=== PATIENT | female | born 1955 | race Caucasian/White ===

== ENCOUNTER 2023-04-02 16:50 | Inpatient (IN) | payer MEDICARE, OTHER, MEDICAID ==
[~2023-04-02] VITALS: Ht 160 cm; Wt 62.2 kg
[2023-04-02 17:14] LABS: BASOPHILS 0.1 % (0-2); HEMATOCRIT 25.3 % (35.0-50.0); HEMOGLOBIN 7.9 g/dL (12.0-18.0); LYMPHOCYTES 7.9 % (24-44); MCH 30.4 (27-36); MCHC 31.3 g/dl (30-36); MCV 97.3 fl (81-99); MONOCYTES 6.6 % (0-12); NEUTROPHILS 85.4 % (39-80); PLATELET COUNT 284 K/uL (140-440); RDW 18.1 (10.5-15.0)
[2023-04-02 17:24] LABS: ALBUMIN 2.2 g/dL (3.4-5.0); ALBUMIN/GLOBULIN RATIO 0.73 (1.1-2.4); ALCOHOL, MEDICAL <3 ng/dL (<3); ALKALINE PHOSPHATASE 418 U/L (46-116); ALT (SGPT) 22 U/L (14-59); ANION GAP 19.7 (7-21); AST (SGOT) 67 U/L (15-37); BILIRUBIN, TOTAL 0.5 ng/dL (0.2-1.0); BUN/CREATININE RATIO 22.93 (6.0-28.6); CALCIUM 7.7 mg/dL (8.5-10.1); CARBON DIOXIDE 19 mmol/L (21-32); CHLORIDE 105 mmol/L (98-107); CREATINE KINASE 27 U/L (26-192); CREATININE, SERUM 1.09 mg/dL (0.55-1.02); GLOMERULAR FILTRATION RATE,EST 49 mL/min (>60); POTASSIUM 4.7 mmol/L (3.5-5.1); PROTEIN, TOTAL 5.2 g/dL (6.4-8.2); UREA NITROGEN 25 mg/dL (7-18)
[2023-04-02 17:44] LABS: ABO O; ANTIBODY SCREEN NEGATIVE; IS CROSSMATCH COMPATIBLE; RH POSITIVE
[2023-04-02 18:03] LABS: ABO O; RH POSITIVE
[2023-04-02 19:21] LABS: INFLUENZA B NAA NEGATIVE (NEGATIVE); RESPIRATORY SYNCYTIAL VIR NAA NEGATIVE (NEGATIVE)
--- NOTE | 2023-04-02 19:50 | NUR ---
REPORT RECEIVED FROM JORGE TRIPATHI IN ED TRAUMA ROOM 1. PT TRANSPORTED TO CCU ROOM 128 VIA STRETCHED WITHOUT INCIDENT WITH THIS HEAD COUNSELOR. 1 UNIT PRBC INFUSING PER ORDER. PT VSS AND NAD NOTED VIA DIRECT OBSERVATION, CONTINUOUS MONITOR AND PT VERBALIZATION.
[2023-04-02] MEDS ORDERED: ELIQUIS5 MG PO (20:15)
[2023-04-02 20:30] VITALS: BP 90/52
[2023-04-02 20:42] LABS: BASOPHILS 0.1 % (0-2); HEMATOCRIT 28.6 % (35.0-50.0); HEMOGLOBIN 9.3 g/dL (12.0-18.0); LYMPHOCYTES 5.6 % (24-44); MCH 29.9 (27-36); MCHC 32.4 g/dl (30-36); MCV 92.3 fl (81-99); MONOCYTES 6.9 % (0-12); NEUTROPHILS 87.4 % (39-80); PLATELET COUNT 172 K/uL (140-440); RDW 17.5 (10.5-15.0)
[2023-04-02 20:46] VITALS: BP 96/51
[2023-04-02 20:52] LABS: PARTIAL THROMBOPLASTIN TIME 31.5 Sec (22.9-41.3)
[2023-04-02 20:53] LABS: INR 1.38 (0.80-1.30); PROTIME 16.4 Sec (11.2-14.2)
[2023-04-02 21:00] VITALS: BP 93/52
[2023-04-02 21:30] VITALS: BP 93/65
--- NOTE | 2023-04-02 21:47 | NUR ---
CALLED AT THIS TIME, TO VERIFY [facility] ORDER, SAID "SINCE SHE IS NOT HAVING ANY FURTHER EMESIS, OK TO HOLD THIS DOSE FOR NOW. VIJAYA JENKINS COMPUTER GAME TESTER [facility] FOR CALL ON SPEAKER.
--- NOTE | 2023-04-02 21:51 | NUR ---
PT ADMISSION ASSESSMENT COMPLETE. SEE [facility] FOR DETAILS. PT REQUESTED AND USED BEDPAN, PT UNABLE TO USE PUREWICK AFTER PLACEMENT. PT DENIES PAIN, DENIES ADDITIONAL NEEDS AT THIS TIME. PT VERBALIZES UNDERSTANDING TO USE CALL LIGHT WITH NEEDS. BED IN LOW, LOCKED POSITION. VSS AND NAD NOTED VIA DIRECT OBSERVATION, PT VERBALIZATION AND CONTINUOUS MONITOR.
[2023-04-02 22:00] VITALS: BP 91/52
[2023-04-02 22:25] LABS: HEMOGLOBIN 8.5 g/dL (12.0-18.0); LYMPHOCYTES 5.9 % (24-44); MCH 29.8 (27-36); MCHC 32.7 g/dl (30-36); MCV 91.2 fl (81-99); MONOCYTES 5.6 % (0-12); NEUTROPHILS 88.5 % (39-80); PLATELET COUNT 148 K/uL (140-440); RBC 2.85 M/ul (4.3-5.7); RDW 17.1 (10.5-15.0)
--- NOTE | 2023-04-02 23:00 | NUR ---
PT INFORMATION INCORRECT ON DOCUMENTATION, WRISTBAND AND MEDITCH. PT CORRECT NAME SPELLING: PANCHITO TYLER. CORRECT : 51 CORRECT AGE: 68 REGISTRATION STATES CORRECTIONS CANNOT BE COMPLETED UNTIL PATIENT DISCHARGE.
[2023-04-02 23:21] VITALS: BP 105/58
[2023-04-03] VITALS (14 sets, daily range): BP systolic 89–109; BP diastolic 44–63
--- NOTE | 2023-04-03 00:32 | NUR ---
SHIFT ASSESSMENT COMPLETE. SEE [facility] FOR DETAILS. PT INTERMITTENTLY CONFUSED, EASILY REORIENTED UPON AWAKENING. PT REMOVED GOWN AND WAS CONFUSED INITIALLY. PT REORIENTED, GOWN REPLACED. PT DENIES ADDITIONAL NEEDS. PT VERBALIZES UNDERSTANDING TO USE CALL LIGHT WITH NEEDS. BED IN LOW, LOCKED POSITION WITH BED ALARM ON FOR PT SAFETY. NAD NOTED AND VSS PER DIRECT OBSERVATION AND CONTINUOUS MONITOR.
--- NOTE | 2023-04-03 01:19 | NUR ---
PT REQUESTED ASSIST WITH BEDPAN. PT ABLE TO URINATE USING BEDPAN NOT PUREWICK AFTER SEVERAL ATTEMPTS WITH PUREWICK. PT REPOSITIONED, DAPHNE CARE COMPLETED. PT DENIES ADDITIONAL NEEDS AT THIS TIME. VSS AND NAD NOTED VIA DIRECT OBSERVATION AND CONTINUOUS MONITOR.
--- NOTE | 2023-04-03 02:00 | NUR ---
LAB IN ROOM. PT REQUESTED AND PROVIDED WARM BLANKET. PT DENIES ADDITIONAL NEEDS. NAD NOTED AND VSS PER CONTINUOUS MONITOR AND DIRECT OBSERVATION.
[2023-04-03 02:19] LABS: HEMOGLOBIN 8.5 g/dL (12.0-18.0); LYMPHOCYTES 6.4 % (24-44); MCH 29.9 (27-36); MCHC 32.8 g/dl (30-36); MCV 91.3 fl (81-99); NEUTROPHILS 86.6 % (39-80); PLATELET COUNT 141 K/uL (140-440); RBC 2.85 M/ul (4.3-5.7); RDW 17.9 (10.5-15.0)
--- NOTE | 2023-04-03 04:24 | NUR ---
PT RESTING IN BED, EASILY AWAKENED. PT DENIES PAIN AND DENIES NEEDS AT THIS TIME. SHIFT ASSESSMENT COMPLETE. [facility]. BED IN LOW, LOCKED POSITION WITH BED ALARM ON FOR PT SAFETY. VSS AND NAD NOTED VIA DIRECT OBSERVATION AND CONTINUOUS MONITOR.
[2023-04-03 05:57] LABS: ALBUMIN 2.3 g/dL (3.4-5.0); ALBUMIN/GLOBULIN RATIO 0.79 (1.1-2.4); ANION GAP 14.5 (7-21); BILIRUBIN, TOTAL 0.5 ng/dL (0.2-1.0); BUN/CREATININE RATIO 40.5 (6.0-28.6); CALCIUM 7.4 mg/dL (8.5-10.1); CREATININE, SERUM 0.79 mg/dL (0.55-1.02); POTASSIUM 4.5 mmol/L (3.5-5.1); PROTEIN, TOTAL 5.2 g/dL (6.4-8.2)
[2023-04-03 05:59] LABS: HEMATOCRIT 26.4 % (35.0-50.0); HEMOGLOBIN 8.5 g/dL (12.0-18.0); LYMPHOCYTES 8.5 % (24-44); MCH 29.4 (27-36); MCHC 32.1 g/dl (30-36); MCV 91.5 fl (81-99); MONOCYTES 7.4 % (0-12); NEUTROPHILS 84.1 % (39-80); PLATELET COUNT 135 K/uL (140-440); RBC 2.89 M/ul (4.3-5.7); RDW 18.1 (10.5-15.0)
--- NOTE | 2023-04-03 06:05 | NUR ---
PT ACCIDENTALLY PULLED OUT RIGHT ARM IV. CATHETER WAS INTACT. PT REQUESTED ADDITIONAL WARM BLANKET. rEQUEST PROVIDED. PT DENIES ADDITIONAL NEEDS. CALL LIGHT IN REACH. BED IN LOW, LOCKED POSITION WITH BED ALARM ON FOR PT SAFETY. VSS AND NAD NOTED VIA CONTINUOUS MONITOR ANDDIRECT OBSERVATION.
[2023-04-03 06:14] LABS: PARTIAL THROMBOPLASTIN TIME 28.2 Sec (22.9-41.3)
[2023-04-03 06:15] LABS: INR 1.27 (0.80-1.30); PROTIME 15.3 Sec (11.2-14.2)
--- NOTE | 2023-04-03 06:48 | NUR ---
PT CONFUSED, ATTEMPTING TO GET OUT OF BED. PT ASKING WHEN SHE IS GOING TO HAVE SURGERY. PT REORIENTED. PT CONTINUED TO TRY TO GET OUT OF BED. PT STATED SHE NEEDED TO GET IN HER OWN BED. PT REORIENTED. PT VERBALIZES UNDERSTANDING TO USE CALL LIGHT WITH NEEDS. REINFORCEMENT NEEDED. PT BED ALARM ON AND BED IN LOW, LOCKED POSITION FOR PT SAFETY. VSS AND NAD NOTED VIA DIRECT OBSERVATION AND CONTINUOUS MONTITOR.
--- NOTE | 2023-04-03 07:30 | NUR ---
REPORT RECEIVED FROM NIGHT RN - PT RESTING IN BED WITH EYES CLOSED, RR EVEN AND UNLABORED. BED ALARM ON, SIDE RAILS UP X 3. DOOR AND CURTAIN OPEN TO RN STATION.
--- NOTE | 2023-04-03 08:30 | NUR ---
PT REMAINS RESTING IN BED WITH EYES CLOSED, NO DISTRESS NOTED. BED ALARM ON.
--- NOTE | 2023-04-03 09:07 | NUR ---
RN IN ROOM TO ADDRESS ALARMING IV. PT WAKES EASILY TO TOUCH AND VOICE. ORIENTED TO SELF AND PLACE BUT AFTER ANSWERING "TACHO" PT IS UNABLE TO PROVIDE ANY ANSWER OTHER THAN "TACHO" TO ALL QUESTIONS ANSWERED. NO DISTRESS NOTED OR OTHER PAIN INDICATIONS. BOWEL TONES ACTIVE, DENIES NAUSEA. PT DROWSY AND RETURNS TO SLEEP WITH WARM BLANKET PLACED OVER ARM TO AVOID DISTAL OCCLUSION. BED ALARM ON WITH CURTAIN AND DOOR OPEN TO RN STATION.
--- NOTE | 2023-04-03 11:00 | NUR ---
RN IN ROOM TO ROUND ON PT - FAMILY AT BEDSIDE. PT RESTING IN BED WITH EYES CLOSED BUT ANSWERS QUESTIONS WHEN ASKED. PT REPORTS 10/10 PAIN IN LOWER ABD. DAUGHTER AT BEDSIDE STATES SHE REQUIRES PREMEDICATION WITH BENEDRYL PRIOR TO NARCOTIC ADMINISTRATION. MINIMAL DOSES OF BOTH BENEDRYL AND FENTANYL ADMINISTERED TO TITRATE TO EFFECTIVE DOSES MONITORING SOFT BP'S.
--- NOTE | 2023-04-03 12:11 | NUR ---
PT ASSISTED UP TO BSC USING 2 PERSON ASSIST. PT UNABLE TO FOLLOW DIRECTIONS WELL DURING TRANSFER. VOIDED 175 OF CONCENTRATED URINE. PT BACK TO BED AND RESTING WITH EYES CLOSED, FAMILY NO LONGER IN ROOM. MAP 59 AT THIS TIME AFTER MEDICAITON ADMINISTRATION WILL CONTINUE TO MONITOR.
--- NOTE | 2023-04-03 13:30 | NUR ---
PT RESTING IN BED WITH EYES CLOSED, RR EVEN AND UNLABORED. BED ALARM ON.
--- NOTE | 2023-04-03 14:00 | NUR ---
PHYSICAL THERAPY IN ROOM WORKING WITH PT. PT ABLE TO FOLLOW DIRECTIONS TRANSIENTLY, UNABLE TO STAND WTIH WALKER BUT ABLE TO BEAR WEIGHT ON BOTH LEGS EQUALLY. BACK TO BED AND QUICKLY FALLS BACK ASLEEP. CALL LIGHT IN REACH, BED ALARM ON.
--- NOTE | 2023-04-03 14:30 | NUR ---
RN ROUNDING ON PT. ASSESSMENT COMPLETE. PT STATES PAIN IS 0/10, ALLOWS PALPATION OF HER ABD WITHOUT GRIMACE OR DISCOMFORT. PT UNABLE TO ANSWER ANY ORIENTATION QUESTIONS, EXPRESSIVE APHASIA TRANSIENT. PT REMIANS DROWSY AND RESTING MOST OF DAY.
--- NOTE | 2023-04-03 15:55 | NUR ---
RN IN ROOM TO RESPOND TO BED ALARM - PT ASSISTED UP TO BSC TO VOID - 100ML URINE VOIDED. BACK TO BED LAYING FLAT ON BACK PER PT REQUEST. BED ALARM ON.
--- NOTE | 2023-04-03 17:07 | NUR ---
RN IN ROOM ROUNDING ON PT - PT AWAKES WITH TOUCH AND VOICE, UNABLE TO OPEN EYES FOR A SUSTAINED AMOUNT OF TIME. PT ANSWERING ORIENTATION QUESTIONS WITH INAPPROPRIATE ANSWERS, SUCH COUNTING TO 10 WHEN ASKED WHAT MONTH IT WAS. PT DOES HOLD ABD AND GRIMACE, LOWER ABD TENDER ON PALPATION, UNCHANGED IN DISTENTION FROM PRIOR ASSESSMENT. PRN FENTANYL ADMINISTERED. FAMILY IN ROOM, PT ABLE TO IDENTIFY DAUGHTER BY NAME. ALL QUESTIONS ANSWERED.
--- NOTE | 2023-04-03 17:33 | NUR ---
RN IN ROOM PER FAMILYS REQUEST PT REMAINS IN PAIN. PT GRIMACING AND MOANING HOLDING ABD. ADDITIONAL 12.5MCG FENTANYL PUSHED IV. FAMILY REMAIN AT BEDSIDE, EMOTIONAL REGARDING PT CONDITION.
--- NOTE | 2023-04-03 17:54 | NUR ---
LAB IN ROOM TO DRAW STAT CBC - MD UPDATED ON PT STATUS: WORSENING ABD PAIN WITH CONSISTANTLY ELEVATED HR TRENDING UPWARD THROUGHOUT SHIFT.
[2023-04-03 17:57] LABS: BASOPHILS 0.1 % (0-2); HEMATOCRIT 24.5 % (35.0-50.0); LYMPHOCYTES 7.1 % (24-44); MCH 30.1 (27-36); MCHC 32.8 g/dl (30-36); MCV 91.8 fl (81-99); MONOCYTES 11.3 % (0-12); NEUTROPHILS 81.5 % (39-80); PLATELET COUNT 122 K/uL (140-440); RBC 2.67 M/ul (4.3-5.7); RDW 17.8 (10.5-15.0)
--- NOTE | 2023-04-03 18:00 | NUR ---
PT RESTING IN BED WITH EYES CLOSED, HAS NOT VOIDED IN SEVERAL HOURS AND DOES NOT APPEAR ABLE TO TRANSFER TO BS AT THIS TIME. BLADDER SCAN SHOWS >400ML IN BLADDER. FAMILY ASKS TO SPEAK WITH MD REGARDING CARE DECISIONS. RN IN ROOM WITH MD WHILE COMFORT CARE VS TREATMENT OPTIONS ARE DISCUSSED. ALL QUESTIONS ANSWERED. PT RESTS IN BED DURING DURATION OF CONVERSATION WITH EYES CLOSED AND ASLEEP.
--- NOTE | 2023-04-03 18:10 | NUR ---
RN IN ROOM ROUNDING ON PT - REMAINS IN TENSE POSISTION RUBBING LEFT HIP, UNABLE TO VERBALIZE PAIN RATING. TITRATING PRN FENTANYL IV PUSH TO 50MCG DOSE. FAMILY REMAINS AT SIDE.
--- NOTE | 2023-04-03 19:21 | NUR ---
RN IN ROOM TO ROUND ON PT AND FAMILY. FAMILY COLLECTIVLY COMMUNICATES THAT THEY WISH TO PLACE PT ON COMFORT CARE MEASURES. MD NOTIFIED.
--- NOTE | 2023-04-03 20:38 | NUR ---
CARE OF PT ASSUMED, REPORT RECEIVED FROM VY PATEL. PT IS RESTING IN BED, RESP EVEN AND UNLABORED, EYES CLOSED, PT APPEARS COMFORTABLE. BED ALARM ON.
--- NOTE | 2023-04-03 22:04 | NUR ---
PT HAS BECOME RESTLESS AND IS PULLING AT CATHETER AND TOSSING AND TURNING IN THE BED, WHEN ASKED IF SHE IS IN PAIN SHE STATES "YES" BUT ANSWERS NO FURTHER QUESTIONS. PT GRIMACING AND MOANING. 25MCG IV FENTANYL GIVEN.
--- NOTE | 2023-04-03 23:03 | NUR ---
FENTANYL PATCH APPLIED TO LEFT SHOULDER. PT HAS BEGUN TOSSING AND TURNING AND MOANING AGAIN, WHEN ASKED IF SHE IS IN PAIN SHE STATES "NO" AT THIS TIME, WILL CONT TO MONITOR. BED ALARM ON.
--- NOTE | 2023-04-03 23:17 | NUR ---
PT CONT TO MOAN AND ROLL AROUND IN THE BED, THIS TIME WHEN ASKED RE PAIN SHE STATES "YES" AND THAT IT IS HER BACK THAT IS HURTING. 25MCG IV FENTANYL GIVEN.
--- NOTE | 2023-04-04 02:07 | NUR ---
PT RESTING, APPEARS COMFORTABLE, RESP EVEN AND UNLABORED.
--- NOTE | 2023-04-04 04:00 | NUR ---
PT REMAINS RESTFUL AND NO LONGER PAINFUL/RESTLESS. OCCASIONALLY IS TURNING HERSELF IN BED. RESP EVEN AND UNLABORED, DOES RESPOND TO STIMULI-TOUCH AND SOUND.
--- NOTE | 2023-04-04 05:10 | NUR ---
BEDSIDE REPORT RECEIVED FROM SKY RN, PT RESTING QUIETLY IN BED, RESP EVEN AND REGULAR, COLOR PALE, PT TRANSPORTED VIA BED TO ROOM 116, PT COMFORT CARE, BED ALARM ON, SIDE RAILS UP X 4, WARM BLANKET GIVEN. PT NPO AT THIS TIME.
--- NOTE | 2023-04-04 05:23 | NUR ---
REPORT GIVEN TO OFELIA PATEL. PT TRANSFERRED TO MED SURG WITH LIFE SKILLS CONSULTANT.
--- NOTE | 2023-04-04 06:40 | NUR ---
PT RESTING WITH EYES CLOSED, RESP EVEN AND REG, SULLIVAN DRAINING SMALL AMOUNT YELLOW URINE.
--- NOTE | 2023-04-04 07:44 | NUR ---
PT SLEEPING SOUNDLY AT TIME OF SHIFT REPORT. QUIET ALERT AT THIS TIME ANSWERS YES/NO QUESTIONS. AGREES SHE IS COMFORTABLE. ORAL CARE PROVIDED, FACE WASHED. DENIES OTHER NEEDS OF. BED ALARM IS SET SULLIVAN DRAINING YELLOW URINE.
--- NOTE | 2023-04-04 09:01 | NUR ---
ORDERS FROM DR. ROBERTSON TO DC IV FLUIDS AND TELEMETRY MONITORING PT IS COMFORT MEASURES ONLY. ORDERS ENTERED, REPEAT BACK PERFORMED.
--- NOTE | 2023-04-04 09:12 | NUR ---
PT CONTINUES RESTING QUIETLY. ROLLS AND REPOSITIONS SELF IN BED DESIRED, RESTING ON RIGHT SIDE AT THIS TIME, ROLLS TO LEFT SIDE WHEN REQUESTED. FENT PATCH IS SECURELY IN PLACE BACK OF LEFT SHOULDER. IV FLUIDS DC'D PER ORDERS.
--- NOTE | 2023-04-04 10:46 | NUR ---
FAMILY PRESENT X4. PT RESTING SOUNDLY. UPDATE R/T PLAN OF CARE PROVIDED, UNDERSTANDING VERBALIZED FURTHER QUESTIONS DENIED.
[2023-04-04] MEDS ORDERED: DEXAMETHASONE4 MG PO (11:44)
[2023-04-04] MEDS ORDERED: POTASSIUM CHLO10 ME2 PO (11:44)
[2023-04-04] MEDS ORDERED: ITRACONAZOLE100 MG PO (11:45)
[2023-04-04] MEDS ORDERED: MELOXICAM7.5 MG PO (11:45)
[2023-04-04] MEDS ORDERED: TRIAMCINOLONE A15 G1 TOP (11:46)
[2023-04-04] MEDS ORDERED: NITROFURANTOIN100 MG PO (11:47)
[2023-04-04] MEDS ORDERED: DULOXETINE HCL40 MG PO (11:47)
--- NOTE | 2023-04-04 14:12 | NUR ---
PT RESTING EYES CLOSED, SEVERAL FAMILY MEMBERS PRESENT. THEY AGREE THE DOCTOR ANSWERED ALL QUESTIONS EARLIER, DENY NEEDS OF. PT APPEARS RESTFUL AND COMFORTABLE
--- NOTE | 2023-04-04 15:09 | NUR ---
PT CONTINUES TO RESTING IN BED DOZING AND THEN AWAKE FOR SHORT PERIODS OF TIME. FAMILY REPORT RECOGNITION OF THIER PRESENCE. PT CONTINUES TO ANSWER YES/NO DENIES PAIN OR DISCOMFORTS. FAMILY REMAIN AT BEDSIDE
[2023-04-04] MEDS ORDERED: DIPHENOXYLATE-1 EACH PO (17:00)
[2023-04-04] MEDS ORDERED: VITAMIN D325 MCG PO (17:01)
[2023-04-04] MEDS ORDERED: ALPHA LIPOIC A600 M1 PO (17:01)
[2023-04-04] MEDS ORDERED: FISH OIL 1,001000 MG PO (17:02)
--- NOTE | 2023-04-04 17:03 | NUR ---
medications reconciled using pharmacy records, PCP notes and patient family interview
--- NOTE | 2023-04-04 17:36 | NUR ---
PT FAMILY REMAIN AT BEDSIDE DENY ANY S/S OF PAIN OR AGITATION DISPLAYED BY PT. PT REFUSES ORAL CARE AND REPOSITIONS SELF IN BED. CONTINUES TO DOZE AND THEN WAKE FOR SHORT TIMES. FAMILY DENY NEEDS
--- NOTE | 2023-04-04 19:00 | NUR ---
REPORT RECIEVED FROM DAQUAN PATEL. BOARD UPDATED. PATIENT RESTING CONFORTABLY. CALL LIGHT WITH IN REACH. NO FURTHER NEEDS AT THIS TIME.
--- NOTE | 2023-04-04 20:28 | NUR ---
PATIENT APEARS COMFORTABLE, NO S/SX OF PAIN NOTED. FACE WASHED. DAPHNE CARE AND CATHETER CARE DONE. LINENS CHANGED. WARM BLANKET GIVEN.
--- NOTE | 2023-04-04 22:34 | NUR ---
PATIENT RESTING IN THE BED. PATIENT DENIES ANY PAIN AT THIS TIME. CALL LIGHT WITH IN REACH.
--- NOTE | 2023-04-05 00:15 | NUR ---
PATIENT LAYING IN BED WITH KNEES BENT AND BLANKETS OFF. THIS RN ASKED THE PATIENT IF SHE WAS HAVING ANY PAIN, PATIENT NODDED YES. WARM BLANKET GIVEN. PRN PAIN MEDICATION GIVEN PER ORDER SEE AUG. O2 SATURATION AND HR SPOT CHECKED. O2 AT 91%, HR AT 105. PATIENT IS RESTING NOW WITH EYES CLOSED. LEGS ARE RELAXED.
--- NOTE | 2023-04-05 01:31 | NUR ---
PATIENT RESTING IN THE BED WITH EYES CLOSED. RESP AT 14. CALL LIGHT WITH IN REACH. NO NEEDS AT THIS TIME.
--- NOTE | 2023-04-05 04:01 | NUR ---
PATIENT RESTING IN BED WITH EYES CLOSED. RESPIRATIONS OBSERVED. CALL LIGHT IN REACH.
--- NOTE | 2023-04-05 06:25 | NUR ---
PATIENT RESTING IN THE BED. PATIENT MORE ALERT THIS MORNING. PATIENT DENIES ANY PAIN. OXYGEN AND HR SPOT CHECKED. CALL LIGHT WITH IN REACH. NO FURTHER NEEDS AT THIS TIME.
--- NOTE | 2023-04-05 07:30 | NUR ---
PT RESTING SOUNDLY AT TIME OF SHIFT REPORT. SHE APPEARS RELAXED BREATHING EVEN AND UNLABORED. BED ALARM IS SET, SULLIVAN DRAINING YELLOW URINE. PT LEFT UNDISTURBED
--- NOTE | 2023-04-05 08:04 | NUR ---
PT CONTINUES RESTING EYES CLOSED. OPENS EYES AND SMILES WHEN TOUCHED AND SPOKEN TO. DOES NOT ANSWER YES/NO QUESTIONS AT THIS TIME. REMAINS IN A RELAXED POSITION AND HAS TURNED TO THE OTHER SIDE SINCE LAST CHECK.
--- NOTE | 2023-04-05 09:40 | NUR ---
Spoke with pt and family. Pt able to respond with 1 word to question. Falls asleep. Pt currently lives with daughter. Pts sister and mother in the room. Son will arrive from [place] later today. Pt was made comfort care yesterday. Discussed options of placement or home with hospice. Family are agreeable to Hospice. I called Dede at hospice and they could deliver a bed tomorrow and admit on Wed. She will let me know when the bed can be delivered.
--- NOTE | 2023-04-05 09:49 | NUR ---
CONNECTED WITH SISTER AND ONE OTHER FAMILY MEMBER IN [facility]. THEY EXPRESSED COMFORT IN DIANNA. GAVE PASTORAL CARE.
--- NOTE | 2023-04-05 10:00 | NUR ---
FENT PATCH NOT PRESENT ON THIS PT. LAST NOTED BY THIS PROJECT MANAGER RETAIL YESTERDAY START OF SHIFT. PHARMACY NOTIFIED. PT GIVEN BED BATH AND LINENS CHANGED PATCH NOT FOUND. NEW PATCH APPLIED. CATH CARE PROVIDED FULL BED BATH AND LINEN CHANGE COMPLETE. FAMILY PRESENT IN ROOM. PT APPEARS PAINFUL DURING PROCESS STATES YES WHEN ASKED IF SHE WANTS PAIN MEDICATIONS MEDICATED WITH IV FENT. NEW PATCH APPLIED WITH OPSITE OVER IT, DAUGHTER STATES PT IS A "ASSESSOR" PATCH PLACED IN AN EFFORT TO MAKE IT HARD TO REACH. PT GIVEN WARM BLANKET, AGREES SHE FEELS BETTER, APPEARS RELAXED AFTER ALL THE ACTIVITY. SEVERAL FAMILY MEMBERS PRESENT IN THE ROOM HOSPICE CART WAS FRESHENED BEFORE THEY ARRIVED.
--- NOTE | 2023-04-05 10:46 | NUR ---
I ASKED FAMILY IS THERE ANYTHING THEY NEED AND THEY SAID NO.
--- NOTE | 2023-04-05 11:27 | NUR ---
FAMILY IN ROOM. DAUGHTER EXPRESSED CONCERN ABOUT NEXT STEPS, STATING THAT THEY DID NOT EXPECT TO LEAVE HOSPITAL. I VERIFIED THAT CASE MANAGEMENT HAD NOT YET BEEN IN, THEN ASSURED DAUGHTER I WOULD LET CASE MANAGEMENT KNOW THEY NEEDED THEIR SERVICES. FOLLOWED UP WITH PARTY HOST/HOSTESS LLOYD WHO INDICATED SHE WOULD VISIT SOON POSSIBLE BUT IT MIGHT BE A BIT.
--- NOTE | 2023-04-05 11:47 | NUR ---
PT AGREES SHE IS PAINFUL AND WANTS PAIN MED ADMINISTERED. FENT GIVEN. FAMILY PRESENT IN THE ROOM SPEAKING WITH DC WAXER OPERATOR
--- NOTE | 2023-04-05 12:42 | NUR ---
PT AWAKE, AGREES SHE IS COMFORTABLE. ACCEPTS ORAL CARE THEN TURNS TO HER SIDE AND RETURNS TO RESTING EYES CLOSED. FAMILY REMAIN AT BEDSIDE
--- NOTE | 2023-04-05 13:47 | NUR ---
PT CONTINUES TO REPOSITION HERSELF SIDE TO SIDE AT WILL. ANSWERS YES/NO WHEN AWAKE, AGREES SHE IS PAINFUL BUT UNABLE TO DESCRIBE FURTHER. MEDICATED PER MAR. FAMILY REMAIN AT BEDSIDE
--- NOTE | 2023-04-05 14:00 | NUR ---
Son, Salas arrived. UPdated to all. They will clean furniture out of living area. Let them know I will return when Iknow when the bed can be delivered.
--- NOTE | 2023-04-05 15:19 | NUR ---
UR NOTE: MEETS GASTROINTESTINAL BLEEDING, UPPER INPATIENT FOR ADMIT
--- NOTE | 2023-04-05 15:23 | NUR ---
FAMILY CONTINUE AT BEDSIDE. DC COLOR FINISHER IN TO UPDATE THEM AND DISCUSS PLANS FOR DC. PT RESTING QUIETLY FAMILY AGREE SHE APPEARS COMFORTABLE
--- NOTE | 2023-04-05 16:22 | NUR ---
PT DTR CALLED TO SAY MOTHER WAS MOANING AND REPORTING INCREASING PAIN. ADMINISTERED IV FENTYL. ADVISED IF THAT DOES NOT HELP SHORTLY TO CALL AGAIN. TURNED UP HEAT IN ROOM PER FAMILY REQUEST.
--- NOTE | 2023-04-05 16:35 | NUR ---
PT RESTING COMFORTABLY. PT FAMILY ANTICIPATE HER TRANSFERRING HOME TOMORROW. DENY CONCERNS OR QUESTIONS
--- NOTE | 2023-04-05 16:51 | NUR ---
Spoke with Estela. She does not have a time for the bed delivery. She will call in the AM. She does think they will have a nurse available tomorrow afternoon to admit to hospice. She will update me in the am. Family notified.
--- NOTE | 2023-04-05 16:53 | NUR ---
Hospice brochure and booklet given.
--- NOTE | 2023-04-05 17:54 | NUR ---
PT RESTING EYES CLOSED FAMILY AT BEDSIDE. HOSPICE CART FRESHENED DRINKS PROVIDED
--- NOTE | 2023-04-05 19:02 | NUR ---
BEDSIDE REPORT RECEIVED FROM DAQUAN PATEL, PT RESTING QUIETLY, OPENS EYES, PT APPEARS RELAXED AT THIS TIME, SIDE RAILS UP X 4, BED LOW POSITION, NO FAMILY AT BEDSIDE AT THIS TIME.
--- NOTE | 2023-04-05 20:40 | NUR ---
PT RESTING QUIETLY, APPEARS CALM, ASSESSMENT AND VS COMPLETED, PT TO RIGHT SIDE, BLANKETS REPLACED ON PT, DURAGESIC PATCH IS IN PLACED TO MID BACK AND COVERED WITH OPSITE, SIDE RAILS UP X 4, BED IN LOW POSITION. PT OPENS EYES AT TIMES, NONVERBAL AT THIS TIME.
--- NOTE | 2023-04-05 21:50 | NUR ---
PT APPEARS TO SLEEP, RESP EVEN AND REG AT 16/MIN, PT COVERED WITH BLANKETS.
--- NOTE | 2023-04-05 22:55 | NUR ---
PT OPENS EYES, APPEARS RELAXED, REMAINS NONVERBAL, SL IN LEFT AC AND LEFT FOREARM BOTH FLUSH WELL. SULLIVAN OUT 175CC MIGEL URINE.
--- NOTE | 2023-04-06 00:40 | NUR ---
PT APPEARS TO SLEEP, RESP EVEN AND REG, RESP RATE 16/MIN. PT HAS REPOSITIONED HERSELF.
--- NOTE | 2023-04-06 02:20 | NUR ---
PT RESTING QUIETLY WITH EYES CLOSED, RESP EVEN AND REG.
--- NOTE | 2023-04-06 03:30 | NUR ---
PT CONTINUES TO SLEEP, RESP EVEN AND REG, PT REPOSITIONING SELF AT TIMES.
--- NOTE | 2023-04-06 05:30 | NUR ---
PT CONTINES TO REST QUIETLY, APPEARS COMFORTABLE, OPENS EYES BUT NONVERBAL, CATH CARE GIVEN, SULLIVAN EMPTIED FOR 150ML MIGEL URINE.
--- NOTE | 2023-04-06 07:37 | NUR ---
Received report from Katarina PATEL. Patient resting in bed with eyes closed, even and unlabored respirations noted, covered with blankets for patient comfort. Will continue plan of care.
--- NOTE | 2023-04-06 09:00 | NUR ---
Spoke with Sadie and family. I spoke with Estela from Hospice. The bed will be delivered this morning. Pt may dc to home at any time. She will let me know if a spot opens up for a nurse to admit this pt this afternoon or if it will be tomorrow. Family updated.
--- NOTE | 2023-04-06 09:04 | NUR ---
Rounded on patient and family. Patient resting in bed, family inquires about pain medication, IV fentanyl provided. Comfort care assessment complete. RR 16 on room air. No resp distress or secretions noted. HRR. Osuna draining WNL. SHUTTLELESS LOOM WEAVER in room assisting with oral care and hygiene. Patient positioned with pillows for comfort. Family denies further needs, call light in reach.
--- NOTE | 2023-04-06 10:01 | NUR ---
FAMILY IN ROOM. PROVIDED HOSPITALITY IN FORM OF REQUESTED PILLOW AND CUP OF COFFEE. PRAYED FOR ABIDING PEACE.
--- NOTE | 2023-04-06 10:40 | NUR ---
Rounded in room with Dr Sierra. Discussed patient medications and patient status, plan of care discussed for discharge, family agreeable.
--- NOTE | 2023-04-06 11:30 | NUR ---
Notified by Tylor Aguayo RN, will be at pts home at 1:30 to admit to hospice. Family updated. Hospice will not be able to deliver comfort meds today. Estela asks if we can fill the liq pain med and haldol. Per family pt does not tolerate MS and has itching. Updated Dr. Sierra he will write orders for pain meds for our pharmacy to fill and complete orders for Hospice. He will have pt discharged by 12:30 for transport by EMS.
[2023-04-06] MEDS ORDERED: FENTANYL1 EACH TD (11:42)
--- NOTE | 2023-04-06 11:45 | NUR ---
CAlled EMS and requested pt to transport to home at 12:30. They can take pt at 1 pm. Updated the charge nurse. Pt will dc at 1 pm and they will need to send meds from the pharmacy with this pt.
[2023-04-06] MEDS ORDERED: OXYCODONE H5 MG/5 ML PO (11:50)
[2023-04-06] MEDS ORDERED: BENADRYL A12.5 MG/5 PO (11:51)
[2023-04-06] MEDS ORDERED: HALOPERIDOL2 MG/1 ML PO (11:57)
--- NOTE | 2023-04-06 12:17 | NUR ---
PRN SL oxycodone administered for nonverbal pain scale 6/10. Patient's family at bedside and states no further needs. Patient eyes closed, RR even.
--- NOTE | 2023-04-06 12:45 | NUR ---
Hospice orders faxed to Dede at [facility]. EMS here to take pt to home. FAmily deny needs. Notified by Sim in pharmacy he has given to meds to the family to take to the hospice nurse.
== END 2023-04-06 13:15 | disposition home or self-care (01) | DRG 377 ==
LOC: ED 16:50 → MS 19:24 → EDBD 19:24 → CCU 19:24 → MS 04-04 05:12
PROVIDERS: Emergency Medicine; ADMIT Family Medicine; ATTEND Family Medicine
PROC: 30283B1 Transfusion of Nonautologous 4-Factor Prothrombin Complex Concentrate into Vein, Percutaneous Approach (ICD-10-PCS; principal; 2023-04-02)
PROC: 30233N1 Transfusion of Nonautologous Red Blood Cells into Peripheral Vein, Percutaneous Approach (ICD-10-PCS; 2023-04-02)
DX: K92.0 Hematemesis (principal); G93.6 Cerebral edema; D62 Acute posthemorrhagic anemia; C79.31 Secondary malignant neoplasm of brain; Z51.5 Encounter for palliative care; Z66 Do not resuscitate; I48.91 Unspecified atrial fibrillation; I95.9 Hypotension, unspecified; T38.0X5A Adverse effect of glucocorticoids and synthetic analogues, initial encounter; T45.515A Adverse effect of anticoagulants, initial encounter; Z20.822 Contact with and (suspected) exposure to COVID-19; Z95.0 Presence of cardiac pacemaker; Z85.3 Personal history of malignant neoplasm of breast; Z88.5 Allergy status to narcotic agent; Z79.01 Long term (current) use of anticoagulants
CPT/HCPCS: 36415; 36430; 70450; 71260; 72125; 74177; 80053; 82553; 85025; 85060; 85610; 85730; 86850; 86900; 86901; 86922; 87502; 96361; 97161; 99285-25; C9113; G0480; J1200; J3010; J7030; J7042; J7121; P9016; U0002